=== PATIENT | female | born 1995 | race Two or more races ===

== ENCOUNTER 2020-01-26 13:43 | Inpatient (IN) | payer MEDICAID ==
[~2020-01-26] VITALS: Ht 160 cm; Wt 37.0 kg
[~2020-01-26 13:43] MED LIST: NAP500T PO
[2020-01-26] MEDS ORDERED: ONDANSETRON HCL 4 MG/2 ML VIAL IV ONE ×2 (14:00→17:30)
[2020-01-26] MEDS ORDERED: SODIUM CHLORIDE 0.9% 1,000 ML IV ONE (14:00)
[2020-01-26 14:47] LABS: Basophils # (auto) 0 10 ^3/uL (0-0.2); Eosinophils # (auto) 0 10 ^3/uL (0-0.8); Hematocrit 42.2 % (36.0-46.0); Hemoglobin 13.7 g/dL (12.2-16.2); Lymphocytes # (auto) 0.7 10 ^3/uL (0.4-5.4); Neutrophils # (auto) 4.9 10 ^3/uL (1.6-8.6); Red Cell Distribution Width 16.7 % (11.8-14.3); White Blood Cell 5.9 10^3/uL (4.4-10.8)
[2020-01-26 14:50] LABS: Basophils % (auto) 0.5 % (0.0-2.0); Lymphocytes % (auto) 11.7 % (10.0-50.0); Mean Corpuscular Hgb Conc. 32.6 g/dL (32.0-36.0); Mean Corpuscular Volume 76.7 fL (80.0-100.0); Monocytes # (auto) 0.3 10 ^3/uL (0-1.3); Monocytes % (auto) 5.7 % (0.0-12.0); Neutrophils % (auto) 82.1 % (37.0-80.0); Nucleated Red Blood Cells % 0.1 %; Platelet Count (auto) 189 10^3/uL (140-450)
[2020-01-26] MEDS ORDERED: ASCORBIC ACID 500 MG TAB PO ONE (15:00)
[2020-01-26] MEDS ORDERED: ENOXAPARIN SOD 100 MG/1 ML SYRINGE SC ONE (15:00)
[2020-01-26] MEDS ORDERED: methylPREDNISolone SOD SUCC 125 MG/2 ML VL IV ONE (15:00)
[2020-01-26] MEDS ORDERED: ZINC SULFATE 220mg CAP or TAB PO ONE (15:00)
[2020-01-26] MEDS ORDERED: AZITHROMYCIN 500MG/ 250ML 250 ML IV ONE (15:00)
[2020-01-26 15:20] LABS: Albumin 3.6 g/dL (3.4-5.0); BUN/Creatinine Ratio 10.8; Calcium 8.2 mg/dL (8.5-10.1); Potassium 3.6 mmol/L (3.5-5.1)
[2020-01-26 15:22] LABS: Bilirubin, Total 0.2 mg/dL (0.2-1.0); Total Protein 8.1 g/dL (6.4-8.2)
[2020-01-26 15:56] LABS: CRP High Sensitivity 1.81 mg/dL (< 0.3)
[2020-01-26] MEDS ORDERED: ONDANSETRON HCL 4 MG/2 ML VIAL IV PRN (19:00)
[2020-01-26] MEDS ORDERED: LACTATED RINGER'S 1,000 ML IV ONE (19:00)
[2020-01-26] MEDS ORDERED: MORPHINE SULF INJ 2 MG/ML SYRINGE 1ML IV PRN ×2 (19:00)
[2020-01-26] MEDS ORDERED: NITROGLYCERIN 0.4 MG SL TAB SL PRN (19:00)
[2020-01-26 20:13] LABS: Amylase 41 U/L (25-115); Lipase 107 U/L (73-393)
[2020-01-26 20:55] LABS: Urine Bacteria NONE SEEN /hpf (None Seen); Urine Blood 3+ /uL (Negative); Urine Mucus FEW (None Seen); Urine WBC 17 /hpf (0 - 5)
[2020-01-26 22:00] VITALS: BP 92/54
[2020-01-26] MEDS ORDERED: ASCORBIC ACID 500 MG TAB PO SCH (22:00)
[2020-01-26] MEDS ORDERED: FAMOTIDINE (10MG/ML) 2ML VL IV SCH (22:00)
[2020-01-26] MEDS ORDERED: METOCLOPRAMIDE HCL 5MG/ml INJ 2ml VIAL IV SCH (22:00)
[2020-01-27] MEDS ORDERED: ZINC SULFATE 220mg CAP or TAB PO SCH (10:00)
[2020-01-27] MEDS ORDERED: AZITHROMYCIN 500MG/ 250ML 250 ML IV SCH (10:00)
[2020-01-27] MEDS ORDERED: CHOLECALCIFEROL (VITD3) 2,000 UNIT CAP PO SCH (10:00)
== END 2020-01-26 23:00 | disposition left against medical advice (07) | DRG 137 ==
LOC: EDBD 13:43 → ER 13:43 → OVERFLOW 19:08
PROVIDERS: ADMIT Hospitalist; ATTEND Hospitalist
DX: U07.1 COVID-19 (principal); J12.89 Other viral pneumonia; J96.01 Acute respiratory failure with hypoxia; R19.7 Diarrhea, unspecified; Z53.29 Procedure and treatment not carried out because of patient's decision for other reasons
CPT/HCPCS: 36415; 71045; 80053; 81001; 82150; 82728; 83605; 83615; 83690; 84702; 85025; 86141; 87040; 87086; 87426; 96361; 96365; 96375; G0378; J2405; J3490

== ENCOUNTER 2020-01-31 11:59 | Emergency (ER) | payer MEDICAID ==
[~2020-01-31] VITALS: Ht 157.5 cm; Wt 104.3 kg
[2020-01-31] MEDS ORDERED: SODIUM CHLORIDE 0.9% 1,000 ML IV ONE (12:15)
[2020-01-31] MEDS ORDERED: DexAMETHasone SOD PHOS 10MG/1ML VIAL INJ IM ONE (12:15)
[2020-01-31] MEDS ORDERED: AZITHROMYCIN 500MG/ 250ML 250 ML IV ONE (12:15)
[2020-01-31 13:26] LABS: Basophils # (auto) 0 10 ^3/uL (0-0.2); Eosinophils # (auto) 0 10 ^3/uL (0-0.8); Hemoglobin 14.3 g/dL (12.2-16.2); Monocytes # (auto) 0.5 10 ^3/uL (0-1.3); Monocytes % (auto) 6.9 % (0.0-12.0); Nucleated Red Blood Cells % 0.1 %; Platelet Count (auto) 264 10^3/uL (140-450)
[2020-01-31 13:28] LABS: Basophils % (auto) 0.3 % (0.0-2.0); Lymphocytes # (auto) 1.4 10 ^3/uL (0.4-5.4); Lymphocytes % (auto) 19.9 % (10.0-50.0); Mean Corpuscular Hemoglobin 24.1 pg (28.0-32.0); Mean Corpuscular Hgb Conc. 31.8 g/dL (32.0-36.0); Mean Corpuscular Volume 75.6 fL (80.0-100.0); Neutrophils # (auto) 5.1 10 ^3/uL (1.6-8.6); Neutrophils % (auto) 72.9 % (37.0-80.0); Red Blood Cells 5.96 10^6/uL (4.0-5.20); Red Cell Distribution Width 16.7 % (11.8-14.3)
[2020-01-31 13:40] LABS: Albumin 3.4 g/dL (3.4-5.0); BUN/Creatinine Ratio 19.4; Calcium 8.5 mg/dL (8.5-10.1); Potassium 3.5 mmol/L (3.5-5.1)
[2020-01-31 13:43] LABS: Bilirubin, Total 0.4 mg/dL (0.2-1.0); Total Protein 8.8 g/dL (6.4-8.2)
[2020-01-31 15:42] VITALS: BP 101/65
== END 2020-01-31 15:50 | disposition home or self-care (01) ==
LOC: EDBD 11:59 → ER 11:59
DX: U07.1 COVID-19 (principal); J18.9 Pneumonia, unspecified organism
CPT/HCPCS: 36415; 71045; 80053; 83605; 85025; 87040; 93005; 96365; 96366; 96372; 99285; J1100

== ENCOUNTER 2024-01-18 18:50 | Inpatient (IN) | payer MEDICAID, OTHER ==
[~2024-01-18] VITALS: Ht 157.5 cm; Wt 91.2 kg
[2024-01-18] MEDS ORDERED: LACTATED RINGER'S 1,000 ML IV SCH (19:15)
[2024-01-18] MEDS ORDERED: ONDANSETRON ODT 4 MG TAB PO PRN (19:15)
[2024-01-18] MEDS ORDERED: LIDOCAINE 2%HCL (LOCAL ANESTH.) INJ 20ML MDV IJ PRN (19:15)
[2024-01-18] MEDS ORDERED: BUTORPHANOL TARTRATE 2 MG/1 ML VIAL IV PRN ×2 (19:15)
[2024-01-18] MEDS ORDERED: ACETAMINOPHEN 325 MG TAB PO PRN (19:15)
[2024-01-18] MEDS ORDERED: miSOPROStol 50 MCG per PRE-CUT 1/2 TAB PO PRN (19:15)
[2024-01-18 19:56] LABS: Basophils # (auto) 0 10 ^3/uL (0-0.2); Eosinophils # (auto) 0 10 ^3/uL (0-0.8); Eosinophils % (auto) 0.3 % (0.0-7.0); Monocytes % (auto) 6.9 % (0.0-12.0)
[2024-01-18 19:57] LABS: Basophils % (auto) 0.4 % (0.0-2.0); Hematocrit 32.9 % (36.0-46.0); Hemoglobin 10.9 g/dL (12.2-16.2); Lymphocytes # (auto) 1.6 10 ^3/uL (0.4-5.4); Lymphocytes % (auto) 17.2 % (10.0-50.0); Mean Corpuscular Hemoglobin 25.5 pg (28.0-32.0); Mean Corpuscular Hgb Conc. 33.2 g/dL (32.0-36.0); Mean Corpuscular Volume 76.9 fL (80.0-100.0); Monocytes # (auto) 0.7 10 ^3/uL (0-1.3); Neutrophils # (auto) 7.2 10 ^3/uL (1.6-8.6); Neutrophils % (auto) 75.2 % (37.0-80.0); Platelet Count (auto) 233 10^3/uL (140-450); Red Blood Cells 4.29 10^6/uL (4.0-5.20); White Blood Cell 9.5 10^3/uL (4.4-10.8)
[2024-01-18 20:03] LABS: Alanine Aminotransferase 20 U/L (7-40); Albumin 3.5 g/dL (3.2-4.8); Alkaline Phosphatase 143 U/L (46-116); Anion Gap 9 (5-15); Aspartate Aminotransferase 25 U/L (13-40); BUN/Creatinine Ratio 22.6 (10.0-20.0); Bilirubin, Total 0.3 mg/dL (0.2-1.0); Blood Urea Nitrogen 14 mg/dL (9-23); Calcium 9.4 mg/dL (8.7-10.4); Carbon Dioxide 19 mmol/L (20-31); Chloride 111 mmol/L (98-107); Glucose 85 mg/dL (74-106); Sodium 139 mmol/L (136-145)
[2024-01-18 20:12] LABS: INR 0.95 (0.9-1.15); Partial Thromboplastin Time 25.3 SEC (24.5-34.5); Prothrombin Time 10.1 sec (9.3-11.8)
--- NOTE | 2024-01-18 21:20 | DVH ---
CHEST RADIOGRAPH Indication:CHEST PAIN Technique: Single frontal view of the chest was obtained Comparison: CHEST PORTABLE on DOS: 01/31/20, CHEST PORTABLE on DOS: 01/26/20 FINDINGS: Lines and Tubes: None Lungs: No focal consolidation. Pleura: No effusion. No pneumothorax. Cardiomediastinal contours: Unremarkable Bones: No acute osseous abnormality. IMPRESSION: 1. No active disease
[2024-01-18] MEDS: MORPHINE SULFATE INJ 2 MG/ml SYRG ONE (21:31)
[2024-01-18 23:00] VITALS: BP 114/64; PULSE 75; RESP 16; O2SAT 100
[2024-01-18 23:49] VITALS: BP 100/57; PULSE 86; RESP 16; TEMP 99.3; O2SAT 100
[2024-01-19] VITALS (8 sets, daily range): BP systolic 91–104; BP diastolic 49–59; PULSE 68–99; RESP 15–18; TEMP 97.8–99.3; O2SAT 96–98
[2024-01-19] MEDS: IBUPROFEN 800 MG TAB PO SCH
[2024-01-19] MEDS: DOCUSATE SOD 100 MG CAP PO SCH (02:03)
[2024-01-19] MEDS: DERMOPLAST 60ML BOTTLE TOP PRN (02:04)
[2024-01-19] MEDS: PHISODERM TOP SOLN 240ML BTL TOP PRN (02:04)
[2024-01-19] MEDS: WITCH HAZEL-GLYCERIN PAD TOP PRN (02:04)
--- NOTE | 2024-01-19 02:09 | DVHHP2 ---
OB CC & HPI Date Date of Admission: Jan 18, 2024 Patient Identification: : 2 Para: 2 EDC: Jan 24, 2024 EGA: 39w 1d Chief Complaints: Reason for admission: other (BOA. s/p at home. Placenta already delivered at home) Admission Nurse Assessment Rev: Yes History of Present Complaints 28yo F now brought in by EMS s/p delivery of infant and placenta at home. She reported contraction started at 5am but became regular and strong about one hour prior to delivery of . Past Medical History Hepatobiliary: Cholelithiasis Past Surgical History: Cholecystectomy, Gastric bypass OB History OB History Care: Good Care (Received care [facility]) Ultrasounds: Normal mid trimester US Obstetrical Complications: None Medical Complications: None Other Concerns: OB Hx as per patient Allergies: Coded Allergies: Ibuprofen (Verified Allergy, Unknown, 01/18/24) Inhaled Anticholinergic Agents (Verified Allergy, Unknown, 01/18/24) Tramadol (Verified Allergy, Unknown, 01/18/24) Home Meds Reported Medications Naproxen (NAPROSYN TABLET) 500 Mg Tb, 1 TAB PO BID, #60 TAB 1 Refill 11/03/13 Current Medications Current Medications Medications (Trade) Dose Ordered Sig/Clay Route PRN Reason Start Time Stop Time Status Last Admin Lactated Ringer's 1,000 ml @ 125 mls/hr Q8H IV 01/18/24 19:15 Vicente Jaylin (Tucks) 1 pad PRN PRN TOP PERINEAL AREA DISCOMFORT 01/18/24 19:15 Sodium Lauryl Sulfate (Phisoderm) 240 ml PRN PRN TOP PERINEAL AREA DISCOMFORT 01/18/24 19:15 Benzocaine (Dermoplast) 1 applic PRN PRN TOP PERINEAL AREA DISCOMFORT 01/18/24 19:15 Butorphanol Tartrate (Stadol Injection) 1 mg Q4HPRN PRN IV MODERATE PAIN (4-6 PAIN SCALE) 01/18/24 19:15 Butorphanol Tartrate (Stadol Injection) 2 mg Q4HPRN PRN IV SEVERE PAIN (7-10 PAIN SCALE) 01/18/24 19:15 Misoprostol (Cytotec) 50 mcg Q4HPRN PRN PO CERVICAL RIPENING 01/18/24 19:15 Lidocaine HCl (Xylocaine) 20 ml ONCE PRN IJ PERINEAL AREA DISCOMFORT 01/18/24 19:15 Acetaminophen (Tylenol Tablet) 650 mg Q4HP PRN PO MILD PAIN (1-3 PAIN SCALE) 01/18/24 19:15 Ondansetron HCl (Zofran Po) 4 mg Q4HPRN PRN PO NAUSEA / VOMITING 01/18/24 19:15 Docusate Sodium (Colace Capsule) 200 mg HS PO 01/18/24 22:00 Ibuprofen (Motrin Tablet) 800 mg Q6HR PO 01/19/24 00:00 Family & Social History Family/Social History Past Family/Social History: Maternal Grandfather: of a OR Maternal Grandmother: Diabetes and Cancer of the breast Mother: Hypertension Blood Type: A- Rubella: unknown RPR/VDRL: Unknown GBS Status: Unknown HBsAG: Unknown Review of Systems Constitutional: No symptom reported Ears, Nose, & Throat: No symptom reported Eyes: No symptom reported Pulmonary/Respiratory: No symptom reported Cardiovascular: No symptom reported Gastrointestinal: No symptom reported Genitourinary: No symptom reported Musculoskeletal: No symptom reported Skin: No symptom reported Psychiatric: No symptom reported Endocrine: No symptom reported Hemotologic/Lymphatic: No symptom reported OB Admission Exam Physical Exam Vitals: Vital Signs Date Time Temp Pulse Resp B/P (MAP) Pulse Ox O2 Delivery O2 Flow Rate FiO2 01/19/24 01:00 99.1 99 16 94/50 (65) 98 99.1 HEENT: Moist Membranes Heart: Rhythm Normal Lungs: Clear Abdomen: Non tender Extremities: Normal Reflexes: Normal (Uterine fundus firm U+1 with deviation to right) Pelvic Exam: Perineum examined, left periurethral laceration noted OB Plan Plan Admitting Diagnosis: BOA Periurethral laceration Other Plan: Straight In & Out urinary bladder catheterization Repair of laceration Misoprostol Routine orders Supportive Care Urinary Bladder emptied via catheterization Laceration repaired with 3-0 Vicryl Misoprostol administered; 200mcg buccal, 600mcg rectally Blood clots evacuated from vagina Spec exam: No cervical Laceration Fundus firm and lochia scant after above interventions At 20:30 Patient reports feeling cold after which she reported chest pain EKG and Chest X-ray ordered Hospitalist called to bedside to asses pt (Venkata Hopkins NP) Gave orders for lab tests and analgesia Cardiology consult requested 21:10 Dr Sneed informed of the above; agrees with the above actions & plan. MELODY BEE CNM Jan 19, 2024 02:09
--- NOTE | 2024-01-19 02:36 | DVH ---
CTA Chest with intravenous contrast INDICATION: r/o pe Comparison Study: None available at time of dictation. TECHNIQUE: Multidetector spiral CTA of the chest was performed of the chest with intravenous contrast . PULMONARY ANGIOGRAPHY PROTOCOL was utilized using a bolus-tracking technique centered on the main p ulmonary artery. Axial, coronal and sagittal multiplanar and MIP reformats were performed. Radiation Dose : 1. Chest: CTDI volume is 24.91 mGy. Dose-length product is 816.4 mGy*cm The dose indicators for CT are the volume Computed Tomography (CT) Dose Index (CTDIvol) and the Dose Length Product (DLP), and are measured in units of mGy and mGy-cm, respectively. These indicators are not patient dose, but values generated from the CT scanner acquisition factors. The report includes radiation exposure data for exposures received during this examination. Findings: Pulmonary artery: Limited evaluation due to contrast bolus timing. No evidence of pulmonary emboli seen in the lobar ar teries. Lower neck: Within normal limits.. Lungs: Within normal limits.. Heart/Vascular Structures: Within normal limits.. Lymph Nodes: No adenopathy Pleura: Within normal limits.. Musculoskeletal: Within normal limits.. Body wall: Within normal limits.. Upper abdomen: Small hiatal hernia. Status post cholecystectomy. Postsurgical changes of the stomach . IMPRESSION: Limited evaluation for pulmonary embolism due to contrast bolus timing. No evidence of pulmonary embo li seen to the level of the proximal lobar arteries. Small hiatal hernia with postsurgical changes of the stomach.
[2024-01-19] MEDS: LACT. RINGERS/OXYTOCIN 20UNITS 500 ML IV ONE ×2 (04:11→04:19)
[2024-01-19] MEDS ORDERED: miSOPROStol 50 MCG per PRE-CUT 1/2 TAB VG ONE (04:15)
[2024-01-19] MEDS ORDERED: miSOPROStol 50 MCG per PRE-CUT 1/2 TAB SL ONE (04:15)
[2024-01-19] MEDS: LIDOCAINE 2%HCL (LOCAL ANESTH.) INJ 10ml MDV ONE (05:09)
[2024-01-19] MEDS: miSOPROStol 100 mcg TAB PR PRN (05:10)
[2024-01-19] MEDS: miSOPROStol 100 mcg TAB SL PRN (05:11)
--- NOTE | 2024-01-19 06:36 | DVHPN2 ---
Progress Note Date Seen: Jan 19, 2024 Subjective S: Lochia minimal. Regular diet well tolerated. Ambulated to BR to void with one assist w/o feeling dizzy or light-headed. Perineal pain relieved with topical analgesic spray. w/o problem. No more chest pain. vital signs Vital Sign Date Time Temp Pulse Resp B/P (MAP) Pulse Ox O2 Delivery O2 Flow Rate FiO2 01/19/24 03:00 99.3 89 16 100/52 (68) 97 99.3 Total Intake and Output 01/18/24 01/18/24 01/19/24 15:00 23:00 07:00 Output Total 15 ml 280 ml Balance -15 ml -280 ml medications Current Medications Medications Dose Ordered Sig/Clay Route Start Time Stop Time Status Last Admin Dose Admin Lactated Ringer's 1,000 ml @ 125 mls/hr Q8H IV 01/18/24 19:15 Vicente Mosqueda 1 pad PRN PRN TOP 01/18/24 19:15 01/19/24 02:04 1 PAD Sodium Lauryl Sulfate 240 ml PRN PRN TOP 01/18/24 19:15 01/19/24 02:04 240 ML Benzocaine 1 applic PRN PRN TOP 01/18/24 19:15 01/19/24 02:04 1 APPLIC Lidocaine HCl 20 ml ONCE PRN IJ 01/18/24 19:15 Acetaminophen 650 mg Q4HP PRN PO 01/18/24 19:15 Ondansetron HCl 4 mg Q4HPRN PRN PO 01/18/24 19:15 Docusate Sodium 200 mg HS PO 01/18/24 22:00 01/19/24 02:03 200 MG Ibuprofen 800 mg Q6HR PO 01/19/24 00:00 Misoprostol 200 mcg ONCE PRN SL 01/19/24 05:15 01/19/24 05:11 200 MCG Misoprostol 600 mcg ONCE PRN MD 01/19/24 05:15 01/19/24 05:10 600 MCG laboratory and microbiology Laboratory Tests 01/18/24 19:35 Test 01/18/24 19:35 Range/Units Serum Glucose 85 74-106 mg/dL Objective O: A&O x3 NAD. Low grade fever, other VSS Chest: heart and lung sounds normal. Breasts: Nipples intact w/o cracks or soreness Abdomen: normal BS, soft, non-tender, no rebound or guarding, fundus firm @ U- 1, Perineum:- no edema, or erythema, laceration site with sutures intact, edges in good approximation. Extremities: no edema or tenderness Lochia - minimal Assessment/Plan 28yo now ppd#1_ s/p at home on 01/18/24. Placenta also delivered at home Low grade fever Blood Type: A Rh: Negative. Rhophylac Breast feeding Rubella: Immune Pain control with oral medications Bowel regimen: Increase fluid intake and fiber in diet, Laxative PRN Discharge plan: Daily assessment findings will determine when to discharge. Pt being followed by Internal Medicine and Cardiology for report of chest pain on 01/18/24. Plan discussed with: Patient MELODY BEE CNM Jan 19, 2024 06:36
[2024-01-19 09:22] LABS: Urine Bacteria None Seen /hpf (None Seen)
[2024-01-19 09:46] LABS: Urine Blood 3+ /uL (Negative); Urine Clarity Clear (Clear); Urine Color Light-Orange (Yellow); Urine Protein, UAD 1+ (Negative); Urine Urobilinogen Normal (Negative); Urine WBC 13 /hpf (0 - 5); Urine pH 6.5 (5.0-9.0)
[2024-01-19 09:53] LABS: Urine Specific Gravity > 1.050 (1.001-1.035)
[2024-01-19 09:54] LABS: Amphetamine Screen, Urine Neg (NEGATIVE); Barbiturate Scree,Urine Neg (NEGATIVE); Benzodiazephine Screen, Urine Neg (NEGATIVE)
[2024-01-19 09:55] LABS: Cannabinoid Screen, Urine Neg (NEGATIVE); Cocaine Screen, Urine Neg (NEGATIVE); Opiate Scree,Urine Neg (NEGATIVE); Phencyclidine Screen, Urine Neg (NEGATIVE)
[2024-01-19] MEDS: RHO (D) IMMUNE GLOBULIN 300 MCG INJ IM ONE (17:45)
[2024-01-19] MEDS ORDERED: miSOPROStol 100 mcg TAB PO ONE (21:06)
[2024-01-19] MEDS ORDERED: OXYTOCIN 10UNIT/ML 1ML VIAL IV ONE (21:07)
--- NOTE | 2024-01-20 01:10 | DVHPN ---
DATE: 01/18/2024 This is a note regarding this patient. The patient was brought in by ambulance. She delivered at home both baby and placenta. She had a periurethral laceration that was repaired by maintenance specialist. The maintenance specialist admitted the patient and evaluated the patient. The patient was doing good. Then, complained of some chest pain for which stat EKG was obtained, which showed fusion complexes. For this reason, hospitalistSandeep was called. He evaluated and gave some orders. Currently, the patient remains stable, pain free. Cardiology consultation was placed. The patient's status is completely stable right now, both from obstetrical point of view and medical point of view. The patient remains under hospitalist consultation and care as well. DO GEOVANNI Lang TID: [id number] RECEIPT: [id number]
[2024-01-20 03:15] VITALS: BP 93/54; PULSE 72; RESP 14; TEMP 97.8; O2SAT 98
--- NOTE | 2024-01-20 04:23 | DVHPN2 ---
Chief Complaints Patient reports: No new complaints (Coping well with current status. Ambulating and vioding freely, deneis any current discomfort, and lochia is WNL. ) Nursing reports: No new complaints Objective Vitals Vital Signs Date Time Temp Pulse Resp B/P (MAP) Pulse Ox O2 Delivery O2 Flow Rate FiO2 01/20/24 03:15 97.8 72 14 93/54 (67) 98 97.8 01/19/24 19:25 Room Air Medications Current Medications Medications (Trade) Dose Ordered Sig/Clay Route PRN Reason Start Time Stop Time Status Last Admin Misoprostol (Cytotec) 200 mcg ONCE PRN SL BLEED/HEMORRHAGE 01/19/24 05:15 01/19/24 05:11 Misoprostol (Cytotec) 600 mcg ONCE PRN SD BLEED/HEMORRHAGE 01/19/24 05:15 01/19/24 05:10 General: Normal (VSS) Head/Eyes: Normal (Denies [place] or dizziness) ENT: Normal Neck: Normal, Supple Lungs: Normal, Normal breath sounds Cardiovascular: Normal Abdominal: Normal (Fundus: Firm 2 FB below umbilicus), Soft, Non tender Musculoskeletal: Normal Extremities: Normal (Bilateral negative Ga's sign) Skin: Normal, Normal color, Warm Neurological: Normal (No deficeits) Others Lochia: Minimal/Rubra Studies Laboratory Tests 01/18/24 19:35 Test 01/18/24 19:35 Range/Units Serum Glucose 85 74-106 mg/dL Ass/Plan Assessment S/P BOA Day 2 in stable condition Plan Encourage ambulation analgesia as needed Continue routine care Cardiac consult as previously determined Evaluate for discharge tomorrow PHYLICIA HENDRIX CNM Jan 20, 2024 04:23
[2024-01-20 07:00] VITALS: BP 86/50; PULSE 66; RESP 16; TEMP 97.6; O2SAT 99
[2024-01-20 07:06] LABS: RPR Non Reactive (Non Reactive)
[2024-01-20 10:06] LABS: Rubella Antibodies, IgG 1.66 index (Immune >0.99)
[2024-01-20 11:00] VITALS: BP 100/56; PULSE 82; RESP 20; TEMP 97.6; O2SAT 98
--- NOTE | 2024-01-20 13:25 | DVHDS2 ---
Obstetrics Discharge Summary Obstetrics Discharge Summary Date of Admission: Jan 18, 2024 Date of Discharge: Jan 20, 2024 Reason For Admission: Others (BOA ( and placenta delivered at home)) Procedures: None Procedures: RHo (D) Ig Operative Complicat: Laceration (periuretheral, repaired) Discharge Diagnosis: Term -Delivered (fundus 1 below U/firm/midline, scant lochia, Pt cleared by Dr. Jarvis) Discharge Information: Activity (as tolerated, no heavy lifting and nothing in the vagina for 6 weeks), Diet (Routine), Medications (Rx sent), Instructions (Routine), Discharge to (Home), Accompanied by (family), Discarge date (01/20/24) SHERIE GRIMES CNM Jan 20, 2024 13:25
[2024-01-20] MEDS ORDERED: PREN-96 PO (13:28)
[2024-01-20] MEDS ORDERED: IBUP-1455 PO (13:28)
[2024-01-20] MEDS ORDERED: DOCU-265 PO (13:28)
[2024-01-20] MEDS ORDERED: FER325T PO (13:28)
--- NOTE | 2024-01-20 15:59 | DVHINCON2 ---
Date Seen: Jan 20, [address] larios Family History: Cancer Family history: Diabetes mellitus Allergies: Coded Allergies: Ibuprofen (Verified Allergy, Unknown, 01/18/24) Inhaled Anticholinergic Agents (Verified Allergy, Unknown, 01/18/24) Tramadol (Verified Allergy, Unknown, 01/18/24) Home Meds Active Scripts Ferrous Sulfate (FERROUS SULFATE) 325 Mg Tb, 1 TAB PO DAILY, #30 TAB 3 Refills Prov:SHERIE GRIMES [facility] 01/20/24 Vit W/ Ferrous Fumara ( One Daily) Daily Tab, 1 TAB PO DAILY, #90 TAB 3 Refills Prov:SHERIE GRIMES [facility] 01/20/24 Ibuprofen Micronized (Ibuprofen) 800 Mg Tab, 800 MG PO Q8HP PRN for 30 Days, #90 TAB Prov:SHERIE GRIMES [facility] 01/20/24 Docusate Sodium (Docusate Sodium) 100 Mg Cap, 200 MG PO HS PRN for 30 Days, #60 CAP Prov:SHERIE GRIMES [facility] 01/20/24 Discontinued Reported Medications Naproxen (NAPROSYN TABLET) 500 Mg Tb, 1 TAB PO BID, #60 TAB 1 Refill 11/03/13 Vital Signs Vital Signs Date Time Temp Pulse Resp B/P (MAP) Pulse Ox O2 Delivery O2 Flow Rate FiO2 01/20/24 11:00 97.6 82 20 100/56 (71) 98 97.6 01/20/24 07:00 Room Air 0.0 Labs/Diagnostic Data Labs Test 01/19/24 09:00 01/18/24 22:05 01/18/24 19:35 Range/Units Urine Color Light-orange Yellow Urine Clarity Clear Clear Urine pH 6.5 5.0-9.0 Urine Specific [place] > 1.050 H 1.001-1.035 Urine Protein 1+ H Negative Urine Ketones Trace Negative Urine Blood 3+ H Negative /uL Urine Nitrite Negative Negative Urine Bilirubin Negative Negative Urine Urobilinogen Normal Negative mg/dL Urine Leukocyte Esterase Negative Negative /uL Urine RBC 1022 0 - 4 /hpf Urine WBC 13 0 - 5 /hpf Urine Squamous Epithelial Cells Few <5 /hpf Urine Calcium Oxalate Crystals Few None Seen Urine Bacteria None seen None Seen /hpf Urine Glucose Normal Normal mg/dL Urine Opiates Screen Neg NEGATIVE Urine Fentanyl Screen Neg NEGATIVE Urine Barbiturates Screen Neg NEGATIVE Urine Phencyclidine Screen Neg NEGATIVE Urine Amphetamines Screen Neg NEGATIVE Urine Benzodiazepines Screen Neg NEGATIVE Urine Cocaine Screen Neg NEGATIVE Urine Cannabinoids Screen Neg NEGATIVE Troponin I High Sensitivity < 3 L </=34 ng/L White Blood Count 9.5 4.4-10.8 10^3/uL Red Blood Count 4.29 4.0-5.20 10^6/uL Hemoglobin 10.9 L 12.2-16.2 g/dL Hematocrit 32.9 L 36.0-46.0 % Mean Corpuscular Volume 76.9 L 80.0-100.0 fL Mean Corpuscular Hemoglobin 25.5 L 28.0-32.0 pg Mean Corpuscular Hemoglobin Concent 33.2 32.0-36.0 g/dL Red Cell Distribution Width 17.0 H 11.8-14.3 % Platelet Count 233 140-450 10^3/uL Mean Platelet Volume 7.9 6.9-10.8 fL Neutrophils (%) (Auto) 75.2 37.0-80.0 % Lymphocytes (%) (Auto) 17.2 10.0-50.0 % Monocytes (%) (Auto) 6.9 0.0-12.0 % Eosinophils (%) (Auto) 0.3 0.0-7.0 % Basophils (%) (Auto) 0.4 0.0-2.0 % Neutrophils # (Auto) 7.2 1.6-8.6 10 ^3/uL Lymphocytes # (Auto) 1.6 0.4-5.4 10 ^3/uL Monocytes # (Auto) 0.7 0-1.3 10 ^3/uL Eosinophils # (Auto) 0 0-0.8 10 ^3/uL Basophils # (Auto) 0 0-0.2 10 ^3/uL Nucleated Red Blood Cells 0.0 % Prothrombin Time 10.1 9.3-11.8 sec Prothrombin Time INR 0.95 0.9-1.15 Activated Partial Thromboplast Time 25.3 24.5-34.5 SEC D-Dimer, Quantitative 4.15 H 0.0-0.49 mg/L FEU Sodium Level 139 136-145 mmol/L Potassium Level 4.0 3.5-5.1 mmol/L Chloride Level 111 H 98-107 mmol/L Carbon Dioxide Level 19 L 20-31 mmol/L Anion Gap 9 5-15 Blood Urea Nitrogen 14 9-23 mg/dL Creatinine 0.62 0.550-1.02 mg/dL Glomerular Filtration Rate Calc 124 >90 mL/min BUN/Creatinine Ratio 22.6 H 10.0-20.0 Serum Glucose 85 74-106 mg/dL Calcium Level 9.4 8.7-10.4 mg/dL Total Bilirubin 0.3 0.2-1.0 mg/dL Aspartate Amino Transferase (AST) 25 13-40 U/L Alanine Aminotransferase (ALT) 20 7-40 U/L Alkaline Phosphatase 143 H 46-116 U/L Total Protein 6.0 5.7-8.2 g/dL Albumin 3.5 3.2-4.8 g/dL Rapid Plasma Reagin Non reactive Non Reactive Hepatitis B Surface Antigen Negative Negative Hepatitis C Antibody Negative Negative Rubella IgG Antibody 1.66 Immune >0.99 index Assessment see dictated note Plan discussed with: Patient Date of Service: Jan 20, 2024 Billing Provider: GABBY HORTON MD Common Visit Codes: [id number] INP/OBS CARE (HIGH) GABBY OHRTON MD Jan 20, 2024 15:59
--- NOTE | 2024-01-20 20:08 | DVHINCON2 ---
INTERNAL MEDICINE CONSULT HISTORY OF PRESENT ILLNESS: The patient is a 28-year-old lady who is seen after she had a baby for complaint of discomfort in the epigastrium and the chest. The patient denies any shortness of breath. No nausea or vomiting. REVIEW OF SYSTEMS: Review of rest of systems are otherwise currently negative. PAST MEDICAL HISTORY: Significant for gastric bypass surgery. MEDICATIONS: She takes no medications on a regular basis. ALLERGIES: IBUPROFEN, TRAMADOL AND INHALERS. SOCIAL HISTORY: Denies smoking or alcohol. FAMILY HISTORY: Negative. PHYSICAL EXAMINATION: GENERAL: The patient is awake, alert. VITAL SIGNS: Temperature 97.6, pulse 82 per minute, blood pressure 100/56. SHEENT: Unremarkable. NECK: There is no JVD, no pedal edema. LUNGS: Equal bilaterally. No added sounds. CARDIOVASCULAR: S1, S2 is regular, no murmurs. ABDOMEN: Soft. There is no organomegaly. NEUROLOGIC: Nonfocal. MUSCULOSKELETAL: Normal. ASSESSMENT AND PLAN: * Abdominal discomfort, which is now improved. The patient has a small hiatal hernia. She will take p.r.n. Pepcid [id number]. * Status post gastric bypass surgery. * Obesity. * Status post delivery. MD NEMO Madden/JYOTI/ZAHRA TID: [id number] RECEIPT: [id number]
== END 2024-01-20 14:47 | disposition home or self-care (01) | DRG 561 ==
LOC: LDRP 18:50
PROVIDERS: ADMIT Obstetrics & Gynecology; ATTEND Obstetrics & Gynecology
PROC: 0UQMXZZ Repair Vulva, External Approach (ICD-10-PCS; principal; 2024-01-19)
PROC: 3E0234Z Introduction of Serum, Toxoid and Vaccine into Muscle, Percutaneous Approach (ICD-10-PCS; 2024-01-19)
DX: O71.82 Other specified trauma to perineum and vulva (principal); K44.9 Diaphragmatic hernia without obstruction or gangrene; O99.215 Obesity complicating the puerperium; O99.63 Diseases of the digestive system complicating the puerperium; Z39.0 Encounter for care and examination of mother immediately after delivery; Z83.3 Family history of diabetes mellitus; Z88.6 Allergy status to analgesic agent; Z67.11 Type A blood, Rh negative; Z23 Encounter for immunization; Z3A.39 39 weeks gestation of pregnancy; Z37.0 Single live birth
CPT/HCPCS: 36415; 71045; 71275; 80053; 80307; 81001; 84484; 85025; 85379; 85610; 85730; 86592; 86762; 86803; 86850; 86900; 86901; 87340; 90384; 94760; 94762; 96365; 96366; 96374; G0378; J2003